=== PATIENT | male | born 1935 | race Caucasian/White ===

== ENCOUNTER → 2016-12-02 | Outpatient (CLI) | payer MEDICARE ==
--- NOTE | 2016-12-02 10:15 | US ---
EXAMINATION TYPE: US prostate transrectal DATE OF EXAM: 12/02/2016 COMPARISON: US 2012 CLINICAL HISTORY: R97.20 elevated PSA; patient stated has nighttime frequency; large body habitus pat ient. This examination was performed using the transrectal probe. EXAM MEASUREMENTS: Gland Size: 6.9 x 5.6 x 4.7cm Volume: 95.73ml Predicted PSA: 11.49ng/ml Actual PSA (if available):5.26ng/ml Seminal vesicles are not well identified initially. Prostate gland remains markedly enlarged in size. There is heterogeneous central zone with cystic change and calcifications. No worrisome peripheral z one nodule is identified. IMPRESSION: Redemonstration of markedly enlarged prostate consistent with BPH, no worrisome peripher al nodule identified. Predicted PSA = volume x 0.12 ng/ml Calculated Volume = 0.5236 x L x W x H
== END | disposition home or self-care (01) ==
LOC: RADUSMAIN 08:40
PROVIDERS: ATTEND Internal Medicine
DX: N40.0 Benign prostatic hyperplasia without lower urinary tract symptoms (principal)
CPT/HCPCS: 76872